=== PATIENT | male | born 1995 | race Caucasian/White ===

== ENCOUNTER 2020-12-17 13:46 | Emergency (ER) | payer OTHER, SELFPAY ==
--- NOTE | 2020-12-17 13:45 | RT.EKG_ITS ---
APPROVED REPORT Exam: Resting ECG Reason for Exam: syncope Patient Location: E HR:52 bpm ECG Measurements Heart Rate 52 AXIS ID 160 P 46 QRSd 104 QRS 96 QT 410 T 17 QTc 383 Conclusion Sinus bradycardia...rate< 60
[2020-12-17 13:47] VITALS: BP 119/68; PULSE 65; RESP 18; TEMP 36.1; O2SAT 100
--- NOTE | 2020-12-17 13:52 | W.ED.GENAD ---
Discharge Plan Disposition Patient Disposition: HOME Condition: Improving Discharge Details Clinical Impression: Laceration of knee, left, Syncope Primary Care Provider: Unknown,Unknown ED Provider: Karla Armendariz Home Meds and New Rx's Prescriptions: No Action No Known Home Meds RF: 0 Discharge Instructions Instructions: Laceration (ED), Syncope (ED) Additional Instructions: Keep wound clean and dry. Do not bend extensively for the first 2 to 3 days. Tissue adhesive will start slough off on its own in 4 to 6 days. Today the EKG and blood work is within normal limits. Please return to the ER for any additional fainting spells, chest pain, fever, vomiting, headache or any concerns. Follow up with primary care provider in 3-5 days. Return to ED sooner if any worsening or concerns. Increase oral fluids. Please take Tylenol or Ibuprofen with food every 4-6 hours as needed for pain and swelling. Discharge Data Discharge Date/Time-TO BE ENTERED AT DEPARTURE: 12/17/20 16:29 Medical Decision Making 25-year-old male presents to the ER status post accidental cut to his left anterior knee which occurred approximately 1 hour prior to arrival. Patient reportedly had 3 syncopal episodes and was incontinent of urine in the car per family. Patient reports that he lost vision and did blackout. He did not eat breakfast this morning. He is slightly diaphoretic upon arrival, alert and oriented. He has a approximately 3 cm superficial laceration noted to the anterior knee small venous ooze noted bleeding controlled with dressing and pressure. Full range of motion noted to left lower extremity. No other injuries noted. BGL upon arrival is 81. Patient reports tetanus vaccination is up-to-date. EKG was reviewed by Bert Parrish MD ER attending, please see his official report and review. Sinus bradycardia no old EKG available. Initial lab including CBC blood glucose IV normal, dehydration, cardiac event, seizure. These are less likely patient denies having any previous episodes no chest pain no headache. Instructed to follow-up with PCP to return with any worsening or additional symptoms, verbalized understanding. Patient was alert and oriented on discharge and hemodynamically stable. This text was generated using [employer] system, please disregard any oddities of phrase or misspellings. HPI General Mode of arrival: wheelchair. Date/Time Provider Initiated Documentation: 12/17/20 13:50. Limitations to Documentation: no limitations. Information obtained by: patient and family. HPI Narrative: 25-year-old male presents to the ER status post accidental cut to his left anterior knee which occurred approximately 1 hour prior to arrival. Patient reportedly had 3 syncopal episodes and was incontinent of urine in the car per family. Patient reports that he lost vision and did blackout. He did not eat breakfast this morning. He is slightly diaphoretic upon arrival, alert and oriented. He has a approximately 3 cm superficial laceration noted to the anterior knee small venous ooze noted bleeding controlled with dressing and pressure. Full range of motion noted to left lower extremity. No other injuries noted. BGL upon arrival is 81. Patient reports tetanus vaccination is up-to-date. Related Data Home Medications Medication Instructions Recorded Confirmed Unknown [No Known Home Meds] 02/19/14 12/17/20 Allergies Allergy/AdvReac Type Severity Reaction Status Date / Time No Known Allergies Allergy Unverified 12/17/20 13:50 General Stated Complaint: Laceration JENI: 2 Review of Systems Narrative: Constitutional: Negative for weight loss, alert and oriented, well groomed, normal body habitus, appears comfortable. HEENT: Denies trauma, headaches, blurry vision, nasal discharge, sore throat, trouble swallowing. Chest: Denies chest pain, palpitations, irregular rhythm, hypertension. Respiratory: Denies Shortness of breath, cough, hemoptysis. GI: Denies abdominal pain, nausea, vomiting, diarrhea, constipation. : Denies dysuria, hematuria, flank pain, rectal bleeding. Neuro: Denies blurry vision, weakness, headache or facial numbness. Hematologic: Denies easy bruising, intolerance to heat or cold, hair loss. COUNTS INCLUDE 234 BEDS AT THE [facility] Social History Smoking/Tobacco Use Status: Never Smoking risk assessment performed?: Yes Drug use: Never Substance use type: does not use Do you feel safe at home: Yes Do you feel safe in your relationship?: Yes Exam Narrative Exam Narrative: Constitutional: Alert and oriented x3. Appears stated age. Normal body habitus. Head: Normocephalic, no trauma. Eyes: Pupils PERRLA, Red reflex noted, EOM's intact. Eyelids symmetrical without lesions, discharge, or swelling. ENT: Bilateral TM's WNL, External ear normal to inspection, no mastoid TTP, swelling, or erythema, Nasal turbinates WNL, no nasal discharge. Normal dentition, Posterior pharynx WNL, no exudate. Chest: RRR, Normal S1, S2, distal pulses intact. Resp: Lungs clear to auscultation bilaterally, no wheezes, rales, or rhonchi. Musculoskeletal: Unable to assess gait 5/5 strength to all four extremities. Skin: Laceration approximately 3 cm noted to anterior butler. Capillary refill less than 2 sec. Neurologic: Cranial nerves II-XII intact. Alert and oriented x 3. DTR's intact. Hematologic/Lymphatic: No ecchymosis, no lymphadenopathy. Extrem Left lower extremity: knee Details: laceration (Mid anterior knee over the patella) Knee images: 1. 3 cm linear laceration superficial, no deformity surrounding swelling no crepitus Course Vital Signs Vital signs: Vital Signs Temperature 36.1 C L 12/17/20 13:47 Pulse 65 12/17/20 13:47 Respiratory Rate 18 12/17/20 13:47 Blood Pressure 119/68 12/17/20 13:47 Pulse Oximetry 100 12/17/20 13:47 Temperature 36.1 C L 12/17/20 13:47 Pulse 65 12/17/20 13:47 Respiratory Rate 18 12/17/20 13:47 Respiratory Effort Non-Labored 12/17/20 13:51 Blood Pressure 119/68 12/17/20 13:47 Blood Pressure Position Sitting 12/17/20 13:47 Pulse Oximetry 100 12/17/20 13:47 Oxygen Delivery Method Room Air 12/17/20 13:47 Oxygen Flow Rate 0 12/17/20 13:47 Pain Level 3 12/17/20 13:47 Procedures Laceration Laceration 1: Site: lower extremity (Left knee) Side (If applicable): left Size (cm): 3 Description: linear Depth: simple, single layer Local Anesthetic: Lidocaine 1% and with Epi Amount of anesthesia used (mL): 3 Pre-repair: wound explored, irrigated extensively and deep structures intact Size (cm): other (Skin adhesive and Steri strips #3)
[2020-12-17 13:58] LABS: Abs Immature Grans 0.03 10^3/uL (0.0-0.06); Absolute Basophil Count 0.06 10^3/uL (0.0-0.2); Absolute Eosinophil Count 0.12 10^3/uL (0.0-0.7); Absolute Lymphocyte Count 2.54 10^3/uL (1.2-3.4); Absolute Monocyte Count 0.99 10^3/uL (0.1-0.8); Absolute Neutrophil Count 6.85 10^3/uL (1.2-6.7); Basophils % 0.6; Eosinophils % 1.1; HCT 48.1 % (40.0-50.0); HGB 15.8 g/dL (13.5-17.5); Immature Grans % 0.3; MCH 31.9 pg (27.0-33.0); MCHC 32.8 % (32.0-36.0); MCV 97.2 fL (80-95); MPV 9.5 fL (8.0-11.0); Monocytes % 9.3; Neutrophils % 64.7; Nucleated RBC 0 %; Platelet Count 390 10^3/uL (130-400); RBC 4.95 10^6/uL (4.36-5.78); RDW-SD 43.6 fL; WBC 10.59 10^3/uL (4.4-10.8)
[2020-12-17] MEDS: Lactated Ringers 1,000 ML 1000 ML IV (14:03)
[2020-12-17] MEDS: Lidocaine/Epinephri/Tetracaine Topical Gel 3 ML TP (14:06)
[2020-12-17 15:28] VITALS: BP 118/63; BP 129/76; BP 135/68; PULSE 65; PULSE 72; PULSE 82
== END 2020-12-17 16:29 | disposition home or self-care (01) ==
PROVIDERS: Emergency Provider Registered Nurse Emergency
DX: S81.012A Laceration without foreign body, left knee, initial encounter (principal); W26.0XXA Contact with knife, initial encounter; R55 Syncope and collapse; R00.1 Bradycardia, unspecified
CPT/HCPCS: 12002; 36415; 36416; 82962; 93005; 96360; 99283; 85025; 93010; 99282